=== PATIENT | male | born 1950 | race African-American/Black ===

== ENCOUNTER 2018-12-06 11:20 | Day surgery (SDC) | payer MEDICARE, MEDICAID ==
[2018-12-06] VITALS (8 sets, daily range): BP systolic 140–173; BP diastolic 74–87
[~2018-12-06] VITALS: Ht 170.2 cm; Wt 100.7 kg
[~2018-12-06 11:20] MED LIST: ACETAMINOPHEN650 M2 ORAL; AVODART0.5 MG ORAL; BENADRYL ALLERG25 M1 PO; BISACODYL10 M1 RC; CLARITIN10 MG ORAL; COLACE100 MG ORAL; DOXAZOSIN MESYLA4 MG ORAL; FLEET ENEMA133 ML RECTAL; FLOMAX0.4 MG ORAL; FUROSEMIDE40 MG ORAL; GABAPENTIN100 MG ORAL; GLIPIZIDE10 MG PO; IBUPROFEN200 MG ORAL; JANUVIA100 MG ORAL; LEVEMIR FL100 UNIT/1 SUBQ; LEVETIRACETAM500 MG ORAL; LIPITOR80 MG ORAL; LR 1000ml 1,000 ML IVLG SCH; METOPROLOL TAR100 MG ORAL; MOM30 ML ORAL; Midazolam 2mg/2ml Inj ONE; NORCO 5-325 TA1 EACH ORAL; NOVOLOG100 UNIT/3 SUBQ; POTASSIUM CHLOR8 ME3 PO; PROTONIX40 MG ORAL; TAMIFLU75 MG ORAL; VITAMIN C500 M1 ORAL; fentaNYL 100 mcg/2 mL IV ONE
[2018-12-06] MEDS ORDERED: fentaNYL 100 mcg/2 mL IV ONE (11:21)
[2018-12-06] MEDS ORDERED: Propofol 200mg/20ml IV ONE (12:00)
[2018-12-06] MEDS ORDERED: LR 1000ml ONE (12:00)
--- NOTE | 2018-12-06 12:17 | Pre-Procedure Note/Attestation ---
Pre-Procedure Note/Attestation Complete Prior to Procedure Planned Procedure: not applicable Procedure Narrative: EGD Colon Indications for Procedure Pre-Operative Diagnosis: anemia, screen Attestation I attest that I discussed the nature of the procedure; its benefits; risks and complications; and alternatives (and the risks and benefits of such alternatives ), prior to the procedure, with the patient (or the patient's legal sales representative cash registers). I attest that, if there was a reasonable possibility of needing a blood transfusion, the patient (or the patient's legal sales representative cash registers) was given the [facility] standardized written summary, pursuant to the [employer] Ang[employer]lica Blood Safety Act ([place] Health and Safety Code # 1645, as amended). I attest that I re-evaluated the patient just prior to the surgery and that there has been no change in the patient's H&P, except as documented below: Vy Rodriguez MD Dec 06, 2018 12:17
--- NOTE | 2018-12-06 12:18 | Short Stay Surgery H&P ---
History of Present Illness History of Present Illness Chief Complaint see typed H&P HPI Sherif Matt is a 68 year old male who was admitted on for Abdominal Pain, Anemia,History Of Colon Cancer Patient History Allergies: Coded Allergies: NO KNOWN DRUG ALLERGIES (Unverified Allergy, Unknown, 12/06/18) Medication History Scheduled Ascorbic Acid* (Vitamin C*), 500 MG ORAL DAILY, (Reported) Atorvastatin (Lipitor), 80 MG ORAL BEDTIME, (Reported) Docusate Sodium* (Colace*), 100 MG ORAL TWICE A DAY, (Reported) Doxazosin Mesylate* (Doxazosin Mesylate*), 4 MG ORAL QHS, (Reported) Dutasteride (Avodart), 0.5 MG ORAL DAILY, (Reported) Furosemide* (Lasix*), 40 MG ORAL DAILY, (Reported) Gabapentin* (Gabapentin*), 100 MG ORAL THREE TIMES A DAY, (Reported) Glipizide (Glipizide), 20 MG PO BIDAC, (Reported) Insulin Aspart* (Novolog*), 8 SUBQ AC, (Reported) Insulin Detemir (Levemir Flexpen), 45 SUBQ DAILY, (Reported) Insulin Detemir (Levemir Flexpen), 30 SUBQ QHS, (Reported) Loratadine (Claritin), 10 MG ORAL DAILY, (Reported) Metoprolol Tartrate* (Metoprolol Tartrate*), 200 MG ORAL BID, (Reported) Oseltamivir Phosphate (Tamiflu), 75 MG ORAL TWICE A DAY Pantoprazole* (Protonix*), 40 MG ORAL ACBREAKFAST, (Reported) Potassium Chloride (Potassium Chloride), 8 MEQ PO BID, (Reported) Sitagliptin (Januvia), 100 MG ORAL DAILY, (Reported) Tamsulosin HCl (Flomax), 0.4 MG ORAL Q1800, (Reported) Scheduled PRN Acetaminophen (Acetaminophen 8 Hour), 650 MG ORAL Q6H PRN for For Pain, ( Reported) Bisacodyl (Bisacodyl), 10 MG RC DAILY PRN for Constipation, (Reported) Diphenhydramine Hcl (Benadryl Allergy), 25 MG PO Q4HR PRN for For Cough, ( Reported) Hydrocodone Bit/Acetaminophen 5-325* ([place] 5-325*), 1 TAB ORAL Q4H PRN for For Pain, (Reported) Ibuprofen (Ibuprofen*), 200 MG ORAL Q6H PRN for For Pain, (Reported) Magnesium Hydroxide (Milk of Magnesia), 30 ML ORAL Q72H PRN for Constipation, ( Reported) Na Phos,M-B/Na Phos,Di-Ba* (Fleet Enema*), 133 ML RECTAL q48hr PRN for Constipation, (Reported) Physical Exam Vital Signs Last Vital Signs Date Time Temp Pulse Resp B/P (MAP) Pulse Ox O2 Delivery O2 Flow Rate FiO2 12/06/18 11:45 Room Air 12/06/18 11:43 97.5 81 18 166/76 97 Plan Attestation Are the patient's medical conditions optimized for surgery? Vy Rodriguez MD Dec 06, 2018 12:18
[2018-12-06] MEDS ORDERED: LR 1000ml 1,000 ML IVLG SCH (12:43)
--- NOTE | 2018-12-06 12:43 | Anethesia Preoperative Eval ---
Anesthesia Pre-op PMH/ROS General Date of Evaluation: Dec 06, 2018 Time of Evaluation: 12:05 Anesthesiologist: Godfrey ASA Score: ASA 3 Mallampati Score Class I : Soft palate, uvula, fauces, pillars visible Class II: Soft palate, uvula, fauces visible Class III: Soft palate, base of uvula visible Class IV: Only hard plate visible Mallampati Classification: Class III Surgeon: Nika Diagnosis: Abdominal pain Surgical Procedure: EGD Colonoscopy Anesthesia History: none Family History: no anesthesia problems Allergies: Coded Allergies: NO KNOWN DRUG ALLERGIES (Unverified Allergy, Unknown, 12/06/18) Medications: see eMAR Patient NPO?: Yes Past Medical History Cardiovascular: Reports: HTN; Denies: CAD, CA, valve dz, arrhythmia, other Pulmonary: 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 Exam Physician Exam Last Vital Signs Date Time Temp Pulse Resp B/P (MAP) Pulse Ox O2 Delivery O2 Flow Rate FiO2 12/06/18 11:45 Room Air 12/06/18 11:43 97.5 81 18 166/76 97 Constitutional: NAD Neurologic: CN 2-12 intact Cardiovascular: RRR, no M/R/G Respiratory: CTA Gastrointestinal: other - obesity Airway Exam Mallampati Score: Class III MO: limited Neck: short thick ROM: limited Teeth: missing Dentures: no upper, no lower Anesthesia Pre-op A/P Risk Assessment & Plan Assessment: ASA 3 Plan: MAC Status Change Before Surgery: No [place] Don[place]ue MD Dec 06, 2018 12:43
[2018-12-06] MEDS ORDERED: fentaNYL 100 mcg/2 mL IV PRN (12:45)
--- NOTE | 2018-12-06 13:17 | Immediate Post-Op Evaluation ---
Immediate Post-Op Evalulation Immediate Post-Op Evalulation Procedure: EGD Colonoscopy polypectomy Date of Evaluation: Dec 06, 2018 Time of Evaluation: 13:16 IV Fluids: 800 Blood Products: none Estimated Blood Loss: min Urinary Output: none Blood Pressure Systolic: 156 Blood Pressure Diastolic: 85 Pulse Rate: 65 Respiratory Rate: 20 O2 Sat by Pulse Oximetry: 98 Temperature (Fahrenheit): 97.6 Pain Score (1-10): 1 Nausea: No Vomiting: No Complications none Patient Status: awake, patent, ventilated, none Hydration Status: adequate [place] Don[place] MD Dec 06, 2018 13:17
--- NOTE | 2018-12-06 14:33 | 48 Hour Post Anesthesia Eval ---
Post Anesthesia Evaluation Procedure: EGD Colonoscopy polypectomy Date of Evaluation: Dec 06, 2018 Time of Evaluation: 14:32 Blood Pressure Systolic: 142 0: 76 Pulse Rate: 82 Respiratory Rate: 22 Temperature (Fahrenheit): 97.6 O2 Sat by Pulse Oximetry: 98 Airway: patent Nausea: No Vomiting: No Pain Intensity: 2 Hydration Status: adequate Cardiopulmonary Status: stable Mental Status/LOC: patient returned to baseline Follow-up Care/Observations: none Post-Anesthesia Complications: none Follow-up care needed: ready to discharge [place] Don[place] MD Dec 06, 2018 14:33
--- NOTE | 2018-12-07 10:56 | Endoscopy Procedure Note ---
Endoscopy Procedure Note General Indication for Procedure: screen, anemia Procedures Performed: EGD, colonoscopy Operative Findings/Diagnosis: duodenitis, polyps, cecectomy, ulcer Specimen: yes Pt Tolerated Procedure Well: Yes Estimated Blood Loss: none Anesthesia Anesthesiologist: see report Anesthesia: moderate sedation Medications Medication Given: see anesthesia record Inserted Devices Implant(s) used?: No GI Core Measures 50 yrs or older w/o bx or poly: No 10yrs. F/U not recommended: No If not recommended, why?: Above average risk 10 yrs. F/U needed: No 18 years or older w/prev. colo: No <3yrs. since last colonoscopy: No Med reason:<3 yrs.: System Reason:<3 yrs.: Last colonoscopy >= to 3yrs: Yes Vy Rodriguez MD Dec 07, 2018 10:56
--- NOTE | 2018-12-07 10:57 | Brief Operative Note ---
Immediate Post Operative Note Operative Note Chief Complaint: screen, anemia Pre-op Diagnosis: anemia, screen Procedure: esophagogastroduodenoscopy colon Post-op Diagnosis: duodenitis, polyps, cecectomy, ulcer Surgeon: leida Anesthesia: MAC Specimen: yes Complications: none Condition: stable Fluids: recorded Estimated Blood Loss: none Drains: none Implant(s) used?: No Vy Rodriguez MD Dec 07, 2018 10:57
--- NOTE | 2018-12-07 18:15 | Procedure Note ---
DATE OF PROCEDURE: 12/07/2018 PROCEDURE: Upper gastrointestinal endoscopy with biopsy as well as colonoscopy with biopsy and snare polypectomy. SURGEON: Vy Rodriguez M.D. ANESTHESIA: Please see the separate anesthesiologist notes for details. PRE-ENDOSCOPIC DIAGNOSES: 1. Anemia. 2. History of colon cancer. POST-ENDOSCOPIC DIAGNOSES: 1. Mild erosive duodenitis. 2. Status post random biopsy with normal antrum. 3. Status post cecal resection. 4. Small ulcer at the surgical resection site, status post biopsy. 5. Pedunculated polyp in the transverse colon, status post snare polypectomy. 6. Three diminutive polyps found in the distal transverse colon, proximal descending colon, mid descending colon, status post biopsy removal. 7. Normal retroflexed view the rectum. DESCRIPTION OF PROCEDURE: The procedure, its risks, indications, alternatives, and possible complications including but not limited to bleeding, infection, perforation, , and anesthesia complications were explained to the patient and informed consent was obtained. The patient was then sedated. A diagnostic upper endoscope was introduced through the oropharynx and advanced to the duodenum. The endoscope was then gradually withdrawn and the mucosa examined carefully. The rectal exam was then done and the colonoscope was introduced in the rectum and advanced to the ileocolonic anastomosis. The colonoscope was gradually withdrawn and the mucosa examined carefully. Findings and procedures were as listed above. The colonoscope was removed. The patient was sent to recovery in good condition. COMPLICATIONS: None. RECOMMENDATIONS: 1. Follow up biopsy results. 2. Check and treat Helicobacter pylori if positive. 3. Outpatient followup. Thank you for asking me to participate in care this patient. Vy Rodriguez M.D. DR: Vielka JOB#: [id number] CC: David Alvarado M.D. ; FAX#: [phone]
== END 2018-12-06 15:20 | disposition home or self-care (01) ==
LOC: GAS 11:20
DX: D64.9 Anemia, unspecified (principal); K29.80 Duodenitis without bleeding; K63.5 Polyp of colon; Z85.038 Personal history of other malignant neoplasm of large intestine; K29.50 Unspecified chronic gastritis without bleeding; Z79.4 Long term (current) use of insulin; D12.4 Benign neoplasm of descending colon; D12.3 Benign neoplasm of transverse colon; E11.40 Type 2 diabetes mellitus with diabetic neuropathy, unspecified; I11.0 Hypertensive heart disease with heart failure; I50.9 Heart failure, unspecified; J44.9 Chronic obstructive pulmonary disease, unspecified; E78.00 Pure hypercholesterolemia, unspecified; M19.90 Unspecified osteoarthritis, unspecified site; F17.210 Nicotine dependence, cigarettes, uncomplicated; K21.9 Gastro-esophageal reflux disease without esophagitis; F41.9 Anxiety disorder, unspecified; F32.9 Major depressive disorder, single episode, unspecified; Z79.899 Other long term (current) drug therapy; Z80.42 Family history of malignant neoplasm of prostate; G47.33 Obstructive sleep apnea (adult) (pediatric); E66.9 Obesity, unspecified; Z68.34 Body mass index [BMI] 34.0-34.9, adult
CPT/HCPCS: 43239; 45380; 45385; 82962; J2250; J2704; J3010; 94003; 94150